=== PATIENT | male | born 1975 | race Two or more races ===

== ENCOUNTER 2019-09-06 04:49 | Emergency (ER) | payer OTHER ==
[~2019-09-06] VITALS: Ht 188 cm; Wt 140.9 kg
[2019-09-06] MEDS ORDERED: LIDOCAINE 1% 10 ML VIAL INJ ONE (06:45)
[2019-09-06 08:24] VITALS: BP 146/89
== END 2019-09-06 08:19 | disposition home or self-care (01) ==
LOC: EMS 04:49
DX: S61.211A Laceration without foreign body of left index finger without damage to nail, initial encounter (principal); W45.8XXA Other foreign body or object entering through skin, initial encounter; Y93.89 Activity, other specified; Y92.89 Other specified places as the place of occurrence of the external cause; Y99.8 Other external cause status
CPT/HCPCS: 12002; 99282; J3490